=== PATIENT | female | born 1945 | race Caucasian/White ===

== ENCOUNTER 2016-04-13 12:38 | Outpatient (CLI) ==
[2015-09-10 13:59] VITALS: BMI 34.0
--- NOTE | 2016-04-13 16:30 | MRI ---
EXAM: MRI cervical spine without IV contrast. DATE: 13 April 2016. HISTORY: Neck pain. TECHNIQUE: Sagittal and axial T1W and T2W sequences of the cervical spine along with sagittal IR an d coronal T2W sequences were obtained using 1.2 Kelsey magnet. No IV contrast. COMPARISON: C-spine series 12/16/2015. MRI brain 12/16/2015. FINDINGS: There is no cervical scoliosis. The no acute c-spine fracture, subluxation, osseous jeffrey gnancy, or jumped facet is evident. Anterior osteophytes, disc desiccation, and moderate disc space narrowing are present at C5-6. Prominent anterior osteophytes, disc desiccation, marked modic type 1 degenerate endplate changes, and moderate/marked disc space narrowing is seen at C6-7. Cervical vertebra are normal in height. T1W bone marrow signal is somewhat heterogeneous due to areas of fat ty infiltration. Cervical and upper thoracic spinal cord reveals no syrinx, cord edema, myelomalaci a, or neoplasm. Tiny areas of T2W/IR hyperintensity within the angelina correlate with disease seen in December 2015 MRI brain study. Visible brainstem is unremarkable. There is no mastoid effusion or mastoiditis. Pitu itary gland is small in size. Left lobe thyroid gland is larger than the right. Left lobe is somew hat heterogeneous, with 3-5 mm T2W bright areas. No submandibular or parotid gland neoplasm is appa rent. Trachea, larynx, and epiglottis are normal. No cervical lymphadenopathy, apical lung mass, p neumonia, or pleural effusion is evident. Segmental analysis: C2-3: Minimal posterior disc bulge (1 mm AP) does not contact the cord. Canal is 10.2 mm AP. Each foramen is patent. C3-4: Small posterior disc bulge (2 mm AP) does not contact the cord. Canal is 8.2 mm AP. Mild/mo derate right and minor left foraminal stenoses are due to uncinate hypertrophy and mild right facet arthropathy. C4-5: Small posterior disc bulge with superimposed midline disc protrusion (1.6 mm AP by 5.5 mm tra nsverse) indents the anterior midline cord. Canal is 7.4 mm AP. Moderate bilateral foraminal steno ses are due to uncinate hypertrophy and mild facet arthropathy. C5-6: Broad posterior disc/osteophyte complex (3 mm AP) flattens the cord anteriorly. There is mil d ligamentum flavum hypertrophy. Canal is 6.7 mm AP. Moderate right and marked left foraminal sten oses are due to uncinate hypertrophy. C6-7: Broad posterior disc/osteophyte complex (3 mm AP) approaches the cord anteriorly. Canal is 8 .5 mm AP. Mild right and moderate left foraminal stenoses are due to uncinate hypertrophy and mild facet arthropathy. C7-T1: Normal. T1-2: Normal. IMPRESSIONS: 1. C-spine mild spondylosis, mild facet arthropathy, and multilevel DDD. 2. Multilevel central canal stenosis (C3-4: Mild. C4-5: Moderate. C5-6: Marked. C6-7: Mild). 3. Multilevel cord flattening. No syrinx or myelomalacia. 4. Multilevel foraminal stenoses (altaf. C4-5 and C5-6). 5. Minor pontine small vessel disease similar to Dec 2015.. 6. Small pituitary gland. 7. Left thyroid lobe heterogeneity and enlargement. Consider ultrasound.
--- NOTE | 2016-04-14 07:23 | MRI ---
EXAM: MRI right shoulder without contrast. HISTORY: Right shoulder pain. Radiates into neck. No right shoulder surgery reported.. TECHNIQUE: Using a local coil on a high field strength magnet multiplanar multisequence MRI perform ed of the right shoulder without intravenous or intra-articular gadolinium contrast.. FINDINGS: I do not have prior radiographs of the right shoulder available for comparison at the louis e of this dictation. A Type I/I I acromion. Coracoacromial ligament/arch intact with some thickening. Moderate degree o f right acromioclavicular joint degenerative arthrosis. Fatty infiltration deltoid muscle without a cute muscle strain. No appreciable free fluid subacromial/subdeltoid bursa. Muscle bulk of the rotator cuff shows no overt atrophy or acute muscle strain. Marked supraspinatus tendinosis over the insertion and critical zone . Mild infraspinatus tendinosis with some insertio nal fissuring. No full-thickness rotator cuff tear identified. Anterior intact subscapularis tendo n fibers. The long head of the biceps tendon shows intact fibers located in expected position withi n the bicipital groove and within normal limits signal intensity and morphology. The right humeral head is of normal morphology and seated. No right glenohumeral joint centered sub chondral bone marrow edema or bone erosions. Physiologic amount fluid right glenohumeral joint. Ch anges of mild right glenohumeral joint osteoarthrosis . Right glenoid labrum grossly intact on this non-arthrographic examination.. 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 Marked supraspinatus tendinosis over the insertion and critical zone. Mild infraspinatus tendinosis with insertional fissuring. No full-thickness rotator cuff tear identified. No appreciable free fl uid subacromial/subdeltoid bursa. Mild right glenohumeral joint osteoarthrosis. Recommendation is obtainment and correlation with plain film radiographs of the right shoulder as no ne are available for comparison at the time of this dictation.
== END 2016-04-13 12:39 | disposition home or self-care (01) ==
LOC: RAD 12:38
PROVIDERS: ATTEND Internal Medicine
DX: M25.511 Pain in right shoulder (principal); M54.2 Cervicalgia

== ENCOUNTER 2016-04-27 12:13 | Outpatient (CLI) ==
[2015-09-10 13:59] VITALS: BMI 34.0
--- NOTE | 2016-04-27 14:11 | US ---
EXAM: THYROID ULTRASOUND HISTORY: Left thyroid enlargement FINDINGS: Ultrasound thyroid. Real time [place]-scale ultrasound and color Doppler imaging. COMPARISON: None The right thyroid lobe measures 4.1 x 1.3 x 1.4 cm. The isthmus measures 0.37 cm. The left thyroid lobe measures 4.7 x 1.8 x 1.7 cm. The thyroid tissue is diffusely heterogeneous with essentially innumerable nodules of differing size s, most are tiny. Dominant nodule on the right measures 1.3 cm in the superior aspect and the domin ant nodule on the left is also 1.3 cm in the superior aspect. The larger nodules which can be adequ ately evaluated reveal a mostly solid slightly hypoechoic appearance with no internal microcalcifica tion or hypervascularity. The gland is mildly hyperemic in general. IMPRESSION: Findings suggestive of multinodular goiter. Speciality consultation with endocrinology for future management to be considered at the discretion of the ordering physician. Follow-up ultra sound recommended.
--- NOTE | 2016-04-27 14:23 | DEXA ---
EXAM: BONE DENSITOMETRY HISTORY: Screening for osteoporosis. Post menopausal FINDINGS: Exam of the lumbar spine demonstrated a total bone mineral density of 1.063 g/cm2. T score is -1.0. Age-matched Z score is 0.0. Exam of the hips revealed a total mean bone mineral density of 1.039 g/cm2. Mean hip T score: 0.2 Mean hip age-matched Z score: 1.3 Study quality: Good. Comparison date: None. FRAX WHO Fracture Risk Assessment. Ten year probability of fracture (%). Major Osteoporotic Fracture 8.4% Hip Fracture 1.5%. IMPRESSION: /IMPRESSION/> 1. Values presented indicate normal bone density of the spine. 2. Values presented indicate normal bone density of the femoral neck (using total area data). 3. Values presented indicate normal bone density of the femoral neck proper.
== END 2016-04-27 12:14 | disposition home or self-care (01) ==
LOC: RAD 12:13
PROVIDERS: ATTEND Internal Medicine
DX: E04.9 Nontoxic goiter, unspecified (principal); Z78.0 Asymptomatic menopausal state

== ENCOUNTER 2016-12-01 09:16 | Emergency (ER) ==
[2016-12-01 09:22] VITALS: BP 164/90; TEMP 101.3; BMI 35.4
[2016-12-01] MEDS ORDERED: TYLENOL PO STA (09:32)
[2016-12-01] MEDS ORDERED: DECADRON 4 MG/ML SDV IM STA (09:32)
--- NOTE | 2016-12-01 09:40 | ED.PDOC ---
General ED Provider: Dr. LU WATKINS Chief Complaint: Sore Throat Stated Complaint: Came for the fever, feeling cold, sinus drainage, congested, coughing some, no sputum. had URTI, thinks she got the same. Time Seen by Physician: 09:38 Mode of Arrival: Walk-In Information Source: Patient Primary Care Provider: DUNIA SIMMONS Nursing and Triage Documentation Reviewed and Agree: Yes Respiratory Complaint Exam - Respiratory Complaint/Exam Symptoms Are: Still present Timing: Constant Initial Severity: Mild Current Severity: Mild Location: Nose, Chest Character: Reports: Non-productive cough Aggravating: Reports: Allergens, Exertion Alleviating: Reports: None Associated Signs and Symptoms: Denies: Rapid breathing, Dyspnea, Fever, Chills, Chest pain, Pleuritic chest pain, Wheezing, Hemoptysis, Dizziness, Calf pain, Calf swelling, Edema, URI, Nasal congestion, Hoarseness, Sinus discomfort, Vomiting, Sore throat, Weight loss, Decreased oral intake, Increased thirst, Increased appetite, Increased urination History of Healthcare-Acquired Pneumonia: No Related Surgical History: Reports: None Pulmonary Embolism Risk Factors: None Cardiac Risk Factors: Reports: None Pseudomonas Risk Factors: Reports: None Tuberculosis Risk Factors: Reports: None Status Asthmaticus Risk Factors: Reports: None Home Oxygen Use: No Recent Stress Test: No Recent Echo/LV Function: No Current Antibiotic Use: No Current Asthma Medication Use: No Respiratory Distress: None Inadequate Respiratory Effort: No Dysphagia Present: No Stridor Present: No JVD Present: No Accessory Muscle Use: No Retractions: Not Present Diminished Breath Sounds: No Differential Diagnoses: Bronchitis, Sinusitis, Influenza Review of Systems - Review Of Systems Constitutional: Reports: Fever, Malaise Eyes: Reports: No symptoms Ears, Nose, Mouth, Throat: Reports: Nose discharge Respiratory: Reports: Cough Cardiac: Reports: No symptoms GI: Reports: No symptoms : Reports: No symptoms Musculoskeletal: Reports: No symptoms Skin: Reports: No symptoms Neurological: Reports: No symptoms Endocrine: Reports: No symptoms Hematologic/Lymphatic: Reports: No symptoms All Other Systems: Reviewed and Negative Past Medical History - Past Medical History Previously Healthy: No Endocrine: Reports: DM 2, Dyslipidemia Cardiovascular: Reports: Hypertension Respiratory: Reports: None Hematological: Reports: None Gastrointestinal: Reports: None Genitourinary: Reports: None Neuro/Psych: Reports: Anxiety Musculoskeletal: Reports: Arthritis, Back Pain Cancer: Reports: None Last Menstrual Period: unknown - Surgical History General Surgical History: Reports: Other (eye surgery,TUBAL RUPTURE IN 84 ,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, FATTY TUMORS IN LEFT ARM) - Family History Family History: Reports: None - Social History Smoking Status: Current every day smoker, Light tobacco smoker Hx Substance Use: No Alcohol Screening: None Physical Exam - Physical Exam Appearance: Well-appearing, No pain distress, Well-nourished Eyes: JOSE R, EOMI, Conjunctiva clear ENT: Ears normal, Nose normal (congestion), Oropharynx normal Respiratory: Airway patent, Breath sounds clear, Breath sounds equal, Respirations nonlabored Cardiovascular: RRR, Pulses normal, No rub, No murmur GI/: Soft, Nontender, No masses, Bowel sounds normal, No Organomegaly Musculoskeletal: Normal strength, ROM intact, No edema, No calf tenderness Skin: Warm, Dry, Normal color Neurological: Sensation intact, Motor intact, Reflexes intact, Cranial nerves intact, Alert, Oriented Psychiatric: Affect appropriate, Mood appropriate Re-Evaluation - Re-Evaluation Time of Re-Evaluation: 11:29 (feeling better) Status: Improved Critical Care Note - Critical Care Note Total Time (mins): 0 Course - Course Hematology/Chemistry: 12/01/16 10:10 12/01/16 10:10 Orders, Labs, Meds: Lab Review 12/01/16 12/01/16 12/01/16 09:45 10:10 10:10 WBC 11.42 H RBC 4.32 Hgb 12.7 Hct 37.8 MCV 87.5 MCH 29.4 MCHC 33.6 RDW Coeff of Karen 12.8 Plt Count 220 Immature Gran % (Auto) 0.4 Neut % (Auto) 79.8 Lymph % (Auto) 12.1 [place] % (Auto) 6.0 Eos % (Auto) 1.4 Baso % (Auto) 0.3 Immature Gran # (Auto) 0.0 Neut # 9.1 H Lymph # 1.4 [place] # 0.7 Eos # 0.2 Baso # 0.0 Sodium 138 Potassium 4.0 Chloride 101 Carbon Dioxide 24 Anion Gap 17.0 BUN 17 Creatinine 0.94 Estimated GFR (MDRD) 59.00 BUN/Creatinine Ratio 18.08 Glucose 115 Lactic Acid Calcium 9.8 Total Bilirubin 0.72 AST 19 ALT 25 Alkaline Phosphatase 106 Total Creatine Kinase 65 Total Protein 7.8 Albumin 3.6 Globulin 4.2 Albumin/Globulin Ratio 0.86 Procalcitonin Influenza A (Rapid) Negative Influenza B (Rapid) Negative 12/01/16 12/01/16 10:10 10:10 WBC RBC Hgb Hct MCV MCH MCHC RDW Coeff of Karen Plt Count Immature Gran % (Auto) Neut % (Auto) Lymph % (Auto) [place] % (Auto) Eos % (Auto) Baso % (Auto) Immature Gran # (Auto) Neut # Lymph # [place] # Eos # Baso # Sodium Potassium Chloride Carbon Dioxide Anion Gap BUN Creatinine Estimated GFR (MDRD) BUN/Creatinine Ratio Glucose Lactic Acid 16.9 Calcium Total Bilirubin AST ALT Alkaline Phosphatase Total Creatine Kinase Total Protein Albumin Globulin Albumin/Globulin Ratio Procalcitonin < 0.05 Influenza A (Rapid) Influenza B (Rapid) Orders Category Date Time Status BLOOD CULTURE Stat LAB 12/01/16 10:10 Received CBC W/ AUTO DIFF Stat LAB 12/01/16 10:10 Completed COMPREHENSIVE METABOLIC PANEL Stat LAB 12/01/16 10:10 Completed CREATINE KINASE Stat LAB 12/01/16 10:10 Completed LACTIC ACID Stat LAB 12/01/16 10:10 Completed MOLECULAR GROUP A STREP Stat LAB 12/01/16 09:45 Results PROCALCITONIN Stat LAB 12/01/16 10:10 Completed RAPID FLU A/B Stat LAB 12/01/16 09:45 Completed RAPID STREP SCREEN [STREP SCREEN] Stat LAB 12/01/16 09:45 Results Acetaminophen [Tylenol] MEDS 12/01/16 09:32 Discontinued 650 mg PO ONCE STA Cephalexin [Keflex] MEDS 12/01/16 10:52 Discontinued 500 mg PO ONCE STA Dexamethasone 4 mg/ml Inj [Decadron 4 mg/ml Sdv] MEDS 12/01/16 09:32 Discontinued 4 mg IM ONCE STA Medications Discontinued Medications Generic Name Dose Route Start Last Admin Trade Name Freq PRN Reason Stop Dose Admin Acetaminophen 650 mg 12/01/16 09:32 12/01/16 09:55 Tylenol PO 12/01/16 09:33 650 mg ONCE STA Administration Cephalexin 500 mg 12/01/16 10:52 Keflex PO 12/01/16 10:53 ONCE STA Dexamethasone Sodium Phosphate 4 mg 12/01/16 09:32 12/01/16 09:54 Decadron 4 Mg/Ml Sdv IM 12/01/16 09:33 4 mg ONCE STA Administration Vital Signs: Temp Pulse Resp BP Pulse Ox 12/01/16 09:17 101.3 F H 88 20 164/90 H 93 L Departure - Departure Time of Disposition: 09:44 Disposition: HOME SELF-CARE Discharge Problem: URTI (acute upper respiratory infection) Instructions: Upper Respiratory Infection (ED) Condition: Good Pt referred to PMD for follow-up: Yes Additional Instructions: Tylenol or Ibuprofen prn Increase hydration if not better needs f/u with PMD steroids can increase sugars please monitor Prescriptions: Cephalexin [Keflex] 500 mg PO Q12HR #20 capsule Codeine/Promethazine Syrup [Phenergan with Codeine 6.25/10 mg/5 ml] 5 ml PO Q8H #1 bottle Prednisone 10 mg PO BIDWM #14 tablet Allergies/Adverse Reactions: Allergies fenofibrate,micronized [From T[employer]] Adverse Reaction (Verified 12/01/16 09:23) Home Medications: Ambulatory Orders Amlodipine Besylate/Benazepril [Amlodipine-Benazepril 5-20 mg] 1 cap PO BEDTIME 03/01/14 Aspirin [Aspirin EC] 81 mg PO DAILY 03/01/14 Lorazepam 2 mg PO BID 03/01/14 Metformin HCl 1,000 mg PO BIDWM 03/01/14 Pantoprazole Sodium [Protonix] 40 mg PO DAILY 03/01/14 Propranolol HCl [Inderal LA] 120 mg PO DAILY 03/01/14 Rosuvastatin Calcium [Crestor] 10 mg PO DIRECTED 03/01/14 Clonidine HCl [Catapres] 0.1 mg PO DAILY 09/10/15 Cephalexin [Keflex] 500 mg PO Q12HR #20 capsule 12/01/16 Codeine/Promethazine Syrup [Phenergan with Codeine 6.25/10 mg/5 ml] 5 ml PO Q8H #1 bottle 12/01/16 Prednisone 10 mg PO BIDWM #14 tablet 12/01/16 Valsartan/Hydrochlorothiazide [Valsartan-Hctz 320-25 mg Tab] 1 each PO DAILY Disposition Discussed With: Patient, Family
[2016-12-01 10:19] LABS: BASOPHILS % (AUTO) 0.3 % (0.0-3.0); EOSINOPHILS # (AUTO) 0.2 K/ul (0.0-0.7); EOSINOPHILS % (AUTO) 1.4 % (0.0-7.0); HEMATOCRIT 37.8 % (37.0-47.0); HEMOGLOBIN 12.7 g/dl (12.0-16.0); IMMATURE GRANULOCYTE % (AUTO) 0.4 % (0.0-5.0); LYMPHOCYTES # (AUTO) 1.4 K/uL (0.60-3.4); LYMPHOCYTES % (AUTO) 12.1 (10.0-50.0); MEAN CORPUSCULAR HEMOGLOBIN 29.4 pg (27.0-31.0); MEAN CORPUSCULAR HGB CONC 33.6 (31.8-35.4); MEAN CORPUSCULAR VOLUME 87.5 fl (81.0-99.0); MONOCYTES # (AUTO) 0.7 K/uL (0.4-2.0); NEUTROPHILS # (AUTO) 9.1 K/ul (2.0-6.9); NEUTROPHILS % (AUTO) 79.8; PLATELET COUNT 220 10^3/uL (140-440); RED BLOOD COUNT 4.32 10^6/ul (4.20-5.40); WHITE BLOOD COUNT 11.42 K/ul (4.6-10.2)
[2016-12-01 10:38] LABS: ALBUMIN 3.6 g/dL (3.4-5.0); ALBUMIN/GLOBULIN RATIO 0.86; BILIRUBIN,TOTAL 0.72 mg/dL (0.00-1.20); BUN/CREATININE RATIO 18.08; CALCIUM 9.8 mg/dL (8.2-10.2); CREATININE 0.94 mg/dL (0.60-1.30); TOTAL PROTEIN 7.8 g/dL (5.8-8.1)
[2016-12-01 10:46] LABS: FLU INTERNAL QC INTERNAL QC VALID; RAPID FLU A NEGATIVE (NEGATIVE); RAPID FLU B NEGATIVE (NEGATIVE)
[2016-12-01] MEDS ORDERED: KEFLEX PO STA (10:52)
== END 2016-12-01 11:51 | disposition home or self-care (01) ==
LOC: ED 09:16
DX: J06.9 Acute upper respiratory infection, unspecified (principal); F17.210 Nicotine dependence, cigarettes, uncomplicated
CPT/HCPCS: 36415; 80053; 82550; 83605; 84145; 85025; 87040; 87651; 87804; 87880; 96372; 99283

== ENCOUNTER 2017-06-20 12:24 | Outpatient (CLI) ==
--- NOTE | 2017-06-20 12:53 | DI ---
EXAM: Chest two view, frontal and lateral views. HISTORY: Cough, chest congestion. COMPARISON: 09/10/2015. FINDINGS: The heart size is normal. Atherosclerotic calcifications are present. There is no pulmon sudha vascular congestion. Calcified granulomatous changes noted. Minimal linear subsegmental atelect asis in the lingula noted. The lungs are otherwise clear. No pleural effusion or pneumothorax is se en. No acute osseous abnormality identified. Since the prior study, there has been no significant i nterval change. IMPRESSION: No acute cardiopulmonary process.
== END 2017-06-20 12:25 | disposition home or self-care (01) ==
LOC: RAD 12:24
PROVIDERS: ATTEND Internal Medicine
DX: R05 Cough (principal); R09.89 Other specified symptoms and signs involving the circulatory and respiratory systems

== ENCOUNTER 2017-06-25 09:43 | Outpatient (CLI) ==
--- NOTE | 2017-06-26 11:45 | MAMMO ---
EXAM: Digital screening mammogram with tomosynthesis. HISTORY: Screening COMPARISON: 12/24/2014 FINDINGS: Digital MLO and CC views of the right and left breast were performed. Tomosynthesis was performed. Computer aided detection was utilized. There are scattered fibroglandular densities. Th ere is no evidence for mass, asymmetry, distortion, or suspicious calcifications in either breast. IMPRESSION: 1. No evidence of malignancy in the right or left breast. 2. Annual screening mammogram is recommended in one year. BIRADS category 1, negative examination
== END 2017-06-25 09:44 | disposition home or self-care (01) ==
LOC: RAD 09:43
PROVIDERS: ATTEND Internal Medicine
DX: Z12.31 Encounter for screening mammogram for malignant neoplasm of breast (principal)
CPT/HCPCS: 77067

== ENCOUNTER 2018-07-01 09:02 | Outpatient (CLI) ==
--- NOTE | 2018-07-02 10:16 | MAMMO ---
EXAM: Digital screening mammogram with tomosynthesis HISTORY: Screening COMPARISON: 06/25/2017 FINDINGS: Digital MLO and CC views of the right and left breast were performed. Tomosynthesis was performed. Computer aided detection utilized. There are scattered fibroglandular densities. There is no evidence for mass, asymmetry, distortion, or suspicious calcifications in either breast. IMPRESSION: 1. No evidence of malignancy in the right or left breast. 2. Annual screening mammogram is recommended in one year. BIRADS category 1, negative examination
== END 2018-07-01 09:03 | disposition home or self-care (01) ==
LOC: RAD 09:02
PROVIDERS: ATTEND Internal Medicine
DX: Z12.31 Encounter for screening mammogram for malignant neoplasm of breast (principal)